=== PATIENT | male | born 1990 | race Caucasian/White ===

== ENCOUNTER 2022-09-21 08:08 | Outpatient (CLI) | payer OTHER, SELFPAY ==
[2022-09-23 19:02] LABS: Sex Hormone Binding Globulin 17 nmol/L (17-56); Testosterone, Adult Male 356 ng/dL (300-1080); Testosterone, Free Calculation 87 pg/mL (47-244); Testosterone, Percentage Free 2.4 % (1.6-2.9)
== END 2022-09-21 08:09 | disposition home or self-care (01) ==
LOC: KYNREF 08:09
PROVIDERS: PCP Family Medicine; Visit Provider Nurse Practitioner Family
DX: E29.1 Testicular hypofunction (principal); R79.89 Other specified abnormal findings of blood chemistry
CPT/HCPCS: 84270; 84402; 84403

== ENCOUNTER 2023-01-25 08:11 | Outpatient (CLI) | payer BC, SELFPAY | END 2023-01-25 08:12 | disposition home or self-care (01) | LOC: NFLDREF 01-27 05:47 | PROVIDERS: PCP Family Medicine; Referring Provider Family Medicine; Visit Provider Nurse Practitioner Family | DX: E29.1 Testicular hypofunction (principal); R79.89 Other specified abnormal findings of blood chemistry | CPT/HCPCS: 84270; 84402; 84403 ==

== ENCOUNTER 2023-07-19 07:57 | Outpatient (CLI) | payer BC, SELFPAY | END 2023-07-19 07:58 | disposition home or self-care (01) | LOC: NFLDREF 07-23 12:52 | PROVIDERS: PCP Family Medicine; Referring Provider Family Medicine; Visit Provider Nurse Practitioner Family | DX: E29.1 Testicular hypofunction (principal); R79.89 Other specified abnormal findings of blood chemistry | CPT/HCPCS: 84403 ==

== ENCOUNTER 2023-12-20 08:04 | Outpatient (CLI) | payer BC, SELFPAY | END 2023-12-20 08:05 | disposition home or self-care (01) | PROVIDERS: PCP Family Medicine; Visit Provider Family Medicine | DX: E29.1 Testicular hypofunction (principal); R79.89 Other specified abnormal findings of blood chemistry; Z11.3 Encounter for screening for infections with a predominantly sexual mode of transmission; Z12.5 Encounter for screening for malignant neoplasm of prostate; Z13.228 Encounter for screening for other metabolic disorders | CPT/HCPCS: 80053; 84270; 84402; 84403; 86592; 86703; 86803; 87340; G0103 ==

== ENCOUNTER 2024-07-16 08:10 | Outpatient (CLI) | payer BC, SELFPAY | END 2024-07-16 08:11 | disposition home or self-care (01) | LOC: NFLDREF 07-17 09:40 | PROVIDERS: PCP Family Medicine; Referring Provider Family Medicine; Visit Provider Family Medicine | DX: R79.89 Other specified abnormal findings of blood chemistry (principal); E29.1 Testicular hypofunction | CPT/HCPCS: 80076; 84270; 84402; 84403 ==

== ENCOUNTER 2025-04-02 09:23 | Outpatient (CLI) | payer BC, SELFPAY | END 2025-04-02 09:24 | disposition home or self-care (01) | LOC: NFLDREF 04-07 00:49 | PROVIDERS: PCP Family Medicine; Referring Provider Family Medicine; Visit Provider Family Medicine | DX: R79.89 Other specified abnormal findings of blood chemistry (principal); E29.1 Testicular hypofunction | CPT/HCPCS: 80061; 80076; 84270; 84402; 84403 ==